=== PATIENT | male | born 1945 | race Caucasian/White ===

== ENCOUNTER 2025-01-17 12:21 | Emergency (ER) | payer MEDICARE, OTHER ==
[2025-01-17 13:03] LABS: ALT (SGPT) 23 U/L (Less than 45); AST (SGOT) 22 U/L (11-34); Albumin 3.7 g/dL (3.1-4.5); Alkaline Phosphatase 76 U/L (40-110); Anion Gap 14 mmol/L (10-20); BUN (Urea Nitrogen) 15 mg/dL (8.4-25.7); Bilirubin, Total 1.9 mg/dL (0.3-1.2); CK (CPK) 65 U/L (30-200); Calc. Creatinine Clearance 0 mL/min (70-130); Calcium 8.7 mg/dL (7.8-10.44); Carbon Dioxide 21 mmol/L (23-31); Chloride 112 mmol/L (98-107); Globulin 3.4 g/dL (2.4-3.5); Glucose 109 mg/dL (83-110); Lipase 8 U/L (8-78); Potassium 3.8 mmol/L (3.5-5.1); Sodium 143 mmol/L (136-145)
[2025-01-17 13:06] LABS: Troponin I 0.041 ng/mL (< 0.028)
[2025-01-17 13:59] LABS: #Basophils 0.04 10x3/uL (0.0-0.2); #Eosinophils 0.06 10x3/uL (0.0-0.5); #Monocytes 0.62 10x3/uL (0.0-1.1); #Neutrophils 5.77 10x3/uL (1.5-8.4); Hematocrit 50.8 % (38.8-50.0); Hemoglobin 17.0 g/dL (13.5-17.5); MDiff Complete? YES; Mean Corpuscular Hemoglobin 29.6 pg (27.0-33.0); Mean Corpuscular Volume 88.3 fL (81.2-95.1); Platelet Adequacy Comment Appears Adequate; Platelet Count 193 10x3/uL (150-450); RBC Morphology Within Normal Limits; Red Blood Cell (RBC) Count 5.75 10x6/uL (4.32-5.72); White Blood Cell (WBC) Count 8.53 10x3/uL (3.5-10.5)
[2025-01-17 15:52] LABS: Troponin I 0.041 ng/mL (< 0.028)
[2025-01-17 17:26] LABS: Osmolality, Serum 298 mOsm/kg (280-301)
== END 2025-01-17 16:32 | disposition home or self-care (01) ==
LOC: CSHERS 12:21
DX: R42 Dizziness and giddiness (principal); R29.701 NIHSS score 1; I10 Essential (primary) hypertension; Z79.899 Other long term (current) drug therapy
CPT/HCPCS: 36415; 70450; 71045; 80053; 82550; 83690; 83930; 84484; 85025; 93005